=== PATIENT | female | born 1965 | race Asian ===

== ENCOUNTER 2017-06-16 10:13 | Outpatient (CLI) | payer BC | END 2017-06-16 10:14 | disposition home or self-care (01) | LOC: BICMAMMO 10:13 | PROVIDERS: ATTEND Internal Medicine Hematology & Oncology | DX: Z13.820 Encounter for screening for osteoporosis (principal); M85.80 Other specified disorders of bone density and structure, unspecified site | CPT/HCPCS: 77080 ==